=== PATIENT | male | born 1995 | race Two or more races ===

== ENCOUNTER 2020-06-25 14:52 | Outpatient (CLI) | payer OTHER | END 2020-06-25 16:20 | disposition home or self-care (01) | LOC: OFIC 805 14:52 | PROVIDERS: ATTEND Otolaryngology Otology & Neurotology | DX: H72.92 Unspecified perforation of tympanic membrane, left ear (principal); H90.12 Conductive hearing loss, unilateral, left ear, with unrestricted hearing on the contralateral side; H92.22 Otorrhagia, left ear ==

== ENCOUNTER 2020-07-02 15:51 | Outpatient (CLI) | payer OTHER | END 2020-07-02 17:27 | disposition home or self-care (01) | LOC: OFIC 805 15:51 | PROVIDERS: ATTEND Otolaryngology Otology & Neurotology | DX: H72.92 Unspecified perforation of tympanic membrane, left ear (principal); H90.12 Conductive hearing loss, unilateral, left ear, with unrestricted hearing on the contralateral side; H92.22 Otorrhagia, left ear ==